=== PATIENT | male | born 1990 | race Hispanic/Latino ===

== ENCOUNTER 2017-12-21 17:59 | Emergency (ER) | payer SELFPAY | END 2017-12-21 19:15 | disposition home or self-care (01) | LOC: MADERS 17:59 | DX: M79.1 Myalgia (principal); Z87.891 Personal history of nicotine dependence | CPT/HCPCS: 99283 ==

== ENCOUNTER 2019-02-11 18:55 | Emergency (ER) | payer OTHER, SELFPAY ==
[2019-02-11] MEDS ORDERED: Lidocaine-Prilocaine 2.5% Cream 5 GM TUBE ONE (19:43)
== END 2019-02-11 20:35 | disposition home or self-care (01) ==
LOC: MADERS 18:55
DX: S61.210A Laceration without foreign body of right index finger without damage to nail, initial encounter (principal); S61.212A Laceration without foreign body of right middle finger without damage to nail, initial encounter; S61.214A Laceration without foreign body of right ring finger without damage to nail, initial encounter; W25.XXXA Contact with sharp glass, initial encounter
CPT/HCPCS: 12002

== ENCOUNTER 2019-10-11 07:41 | Emergency (ER) | payer SELFPAY ==
[2019-10-11] MEDS ORDERED: Lidocaine 1% 20 ML MDV ONE (08:50)
[2019-10-11] MEDS ORDERED: cefTRIAXone\\ROCEPHIN 1 GM VIAL ONE (08:50)
== END 2019-10-11 09:24 | disposition home or self-care (01) ==
LOC: MADERS 07:41
DX: J42 Unspecified chronic bronchitis (principal); I10 Essential (primary) hypertension; J01.90 Acute sinusitis, unspecified; F17.210 Nicotine dependence, cigarettes, uncomplicated
CPT/HCPCS: 96372; 99283; J0696; J1040; J2001

== ENCOUNTER 2023-02-15 15:50 | Emergency (ER) | payer OTHER, SELFPAY ==
[2023-02-15] MEDS ORDERED: Bicillin LA 1.2 MILLION UNITS/2 ML SYRINGE ONE (16:59)
== END 2023-02-15 17:21 | disposition home or self-care (01) ==
LOC: MADERS 15:50
DX: J02.0 Streptococcal pharyngitis (principal); F17.210 Nicotine dependence, cigarettes, uncomplicated
CPT/HCPCS: 87430; 96372; 99282; J0561

== ENCOUNTER 2023-10-09 07:01 | Emergency (ER) | payer OTHER | END 2023-10-09 07:33 | disposition home or self-care (01) | LOC: MADERS 07:01 | DX: S31.31XA Laceration without foreign body of scrotum and testes, initial encounter (principal); I10 Essential (primary) hypertension; F17.210 Nicotine dependence, cigarettes, uncomplicated; X58.XXXA Exposure to other specified factors, initial encounter | CPT/HCPCS: 99283 ==

== ENCOUNTER 2025-10-23 16:16 | Emergency (ER) | payer BC ==
[2025-10-23] MEDS ORDERED: Cephalexin 500 MG CAP ONE (16:42)
== END 2025-10-23 16:54 | disposition home or self-care (01) ==
LOC: MADERS 16:16
DX: L02.415 Cutaneous abscess of right lower limb (principal); I10 Essential (primary) hypertension; Z79.899 Other long term (current) drug therapy
CPT/HCPCS: 87070; 87077; 87205; 99283